=== PATIENT | male | born 1965 | race Caucasian/White ===

== ENCOUNTER 2016-11-30 17:03 | Emergency (ER) | payer BC ==
[~2016-11-30] VITALS: Ht 177.8 cm; Wt 137.8 kg
[2016-11-30] MEDS ORDERED: PERCOCET 5/31 TABLET PO (20:16)
[2016-11-30] MEDS ORDERED: TRAMADOL HCL50 MG PO (21:18)
[2016-11-30 21:28] VITALS: BP 123/62
== END 2016-11-30 21:29 | disposition home or self-care (01) ==
LOC: EME 17:03
PROC: 0RSJXZZ Reposition Right Shoulder Joint, External Approach (ICD-10-PCS; principal; 2016-11-30)
DX: S42.291A Other displaced fracture of upper end of right humerus, initial encounter for closed fracture (principal); S43.004A Unspecified dislocation of right shoulder joint, initial encounter; X50.3XXA Overexertion from repetitive movements, initial encounter; E03.9 Hypothyroidism, unspecified; Z87.442 Personal history of urinary calculi
CPT/HCPCS: 71010; 73030; 73590; 99281; 99284; J2270